=== PATIENT | male | born 1980 | race Caucasian/White ===

== ENCOUNTER 2022-11-13 16:12 | Inpatient (IN) | payer OTHER ==
[~2022-11-13] VITALS: Ht 180.3 cm; Wt 79.1 kg
[2022-11-13 16:37] VITALS: BP 120/74
[2022-11-13 17:50] LABS: BILIRUBIN Negative (Negative); BLOOD Negative (Negative); CLARITY Clear (Clear); COLOR Yellow (Yellow); GLUCOSE Negative (Negative); KETONE Negative (Negative); LEUKO ESTERASE Negative (Negative); NITRITE Negative (Negative); SPECIFIC GRAVITY <= 1.005 (1.001-1.030); UROBILINOGEN 0.2 E.U./dl (0.0-1.0)
[2022-11-13 17:57] LABS: URINE AMPHETAMINES Negative (1000ng/ml); URINE BARBITURATES Negative (200ng/ml); URINE BENZODIAZEPINES Positive (200ng/ml); URINE CANNABINOIDS (THC) Negative (50ng/ml); URINE COCAINE Negative (300ng/ml); URINE METHADONE Negative (300ng/ml); URINE OPIATES Negative (300ng/ml); URINE PHENCYCLIDINE Negative (25ng/ml)
[2022-11-13 18:04] LABS: BACTERIA TRACE; EPITHELIAL CELLS 0-2; RBC 0-2 rbc/hpf (0-2); WBC 0-2 wbc/hpf (0-5)
[2022-11-13 18:31] LABS: BASO % 0.4 % (0.0-1.0); HEMATOCRIT 38.3 % (42.0-52.0); LYMPH # 0.6 10*3/uL (1.3-4.4); LYMPH % 9.2 % (27.0-41.0); MEAN CELL VOLUME 89.9 fl (80.0-94.0); MEAN CORPUSCULAR HGB 30.8 pg (27.0-31.0); MEAN CORPUSCULAR HGB CONC 34.2 g/dl (33.0-37.0); MEAN PLATELET VOLUME 8.5 fl (9.6-12.3); MONO # 0.3 10*3/uL (0.1-1.0); MONO % 4.1 % (3.0-9.0); NEUT # 5.9 10*3/uL (2.3-7.9); NEUT % 86.2 % (47.0-73.0); PLATELET COUNT AUTOMATED 283 10*3/uL (130-400); RED BLOOD COUNT 4.26 10*6/uL (4.50-5.90); RED CELL DISTRI WIDTH 11.9 % (0-14.5); WHITE BLOOD COUNT 6.9 10*3/uL (4.8-10.8)
[2022-11-13 18:55] LABS: ALKALINE PHOSPHATASE 88 U/L (46-116); BUN 5 mg/dl (9-23); CHLORIDE 103 mmol/L (98-107); POTASSIUM 4.1 mmol/L (3.4-5.1); SGPT/ALT 14 U/L (10-49); TOTAL PROTEIN 7.4 gm/dL (6.0-8.0)
[2022-11-13 18:58] LABS: ETHYL ALCOHOL < 3.0 mg/dl (<3)
[2022-11-13 19:26] VITALS: BP 135/65
[2022-11-13 23:30] VITALS: BP 108/67
[2022-11-14] MEDS ORDERED: INSULIN LI100 UNIT/2 SQ (00:55)
[2022-11-14] MEDS ORDERED: LANTUS SOL100 UNIT/1 SQ (00:55)
[2022-11-14 04:00] VITALS: BP 110/72
[2022-11-14 06:35] LABS: BASO % 0.2 % (0.0-1.0); EOS # 0.1 10*3/uL (0.0-0.4); HEMATOCRIT 35.9 % (42.0-52.0); LYMPH # 0.9 10*3/uL (1.3-4.4); LYMPH % 14.2 % (27.0-41.0); MEAN CELL VOLUME 90.2 fl (80.0-94.0); MEAN CORPUSCULAR HGB 30.7 pg (27.0-31.0); MEAN PLATELET VOLUME 9.1 fl (9.6-12.3); MONO # 0.4 10*3/uL (0.1-1.0); MONO % 6.5 % (3.0-9.0); NEUT # 4.6 10*3/uL (2.3-7.9); NEUT % 77.6 % (47.0-73.0); PLATELET COUNT AUTOMATED 277 10*3/uL (130-400); RED BLOOD COUNT 3.98 10*6/uL (4.50-5.90); RED CELL DISTRI WIDTH 11.8 % (0-14.5)
[2022-11-14 08:00] VITALS: BP 102/68
[2022-11-14 08:19] LABS: BUN 9 mg/dl (9-23); CHLORIDE 102 mmol/L (98-107); CHOLESTEROL 138 mg/dL (<200); FREE T4 0.81 ng/dl (0.89-1.76); LDL CHOLESTEROL 74 mg/dL (9-159); POTASSIUM 4.7 mmol/L (3.4-5.1); THYROID STIM HORMONE (HS) 0.372 uIU/ml (0.550-4.780); TRIGLYCERIDES 110 mg/dl (<150)
[2022-11-14 12:00] VITALS: BP 122/75
[2022-11-14 16:00] VITALS: BP 122/76
[2022-11-14 20:00] VITALS: BP 118/78
[2022-11-15] VITALS: BP 122/76; BP 178/59
[2022-11-15 08:00] VITALS: BP 134/83
[2022-11-15 12:00] VITALS: BP 124/81
[2022-11-15 16:00] VITALS: BP 138/80
[2022-11-15 20:00] VITALS: BP 135/78
[2022-11-16] VITALS: BP 125/81
[2022-11-16 08:00] VITALS: BP 130/85
[2022-11-16 12:00] VITALS: BP 119/76
[2022-11-16 14:14] LABS: BASO % 0.6 % (0.0-1.0); EOS # 0.1 10*3/uL (0.0-0.4); EOS % 1.3 % (1.0-4.0); HEMATOCRIT 37.8 % (42.0-52.0); LYMPH % 14.5 % (27.0-41.0); MEAN CELL VOLUME 87.9 fl (80.0-94.0); MEAN CORPUSCULAR HGB 30.2 pg (27.0-31.0); MEAN CORPUSCULAR HGB CONC 34.4 g/dl (33.0-37.0); MEAN PLATELET VOLUME 8.4 fl (9.6-12.3); MONO # 0.4 10*3/uL (0.1-1.0); MONO % 5.7 % (3.0-9.0); NEUT # 5.4 10*3/uL (2.3-7.9); NEUT % 77.2 % (47.0-73.0); PLATELET COUNT AUTOMATED 296 10*3/uL (130-400); RED CELL DISTRI WIDTH 11.7 % (0-14.5)
[2022-11-16 14:35] LABS: BUN 14 mg/dl (9-23); CHLORIDE 101 mmol/L (98-107); POTASSIUM 4.2 mmol/L (3.4-5.1)
[2022-11-16 16:00] VITALS: BP 124/72
[2022-11-16 20:00] VITALS: BP 126/76
[2022-11-17] VITALS: BP 110/69; BP 126/76
[2022-11-17 08:00] VITALS: BP 113/76
[2022-11-17 12:00] VITALS: BP 115/74
[2022-11-17] MEDS ORDERED: VIBRA-TAB100 MG PO (12:50)
[2022-11-17] MEDS ORDERED: METRONIDAZOLE500 M1 PO (12:50)
== END 2022-11-17 17:00 | disposition home or self-care (01) | DRG 773 ==
LOC: ED 16:12 → EDHOLD 19:01 → 5E 19:01
PROVIDERS: Emergency Medicine; Internal Medicine; Student in an Organized Health Care Education/Training Program; ADMIT Internal Medicine; ATTEND Internal Medicine
DX: F11.13 Opioid abuse with withdrawal (principal); E10.43 Type 1 diabetes mellitus with diabetic autonomic (poly)neuropathy; F41.9 Anxiety disorder, unspecified; E87.1 Hypo-osmolality and hyponatremia; F17.210 Nicotine dependence, cigarettes, uncomplicated; D64.9 Anemia, unspecified; E10.65 Type 1 diabetes mellitus with hyperglycemia; F10.10 Alcohol abuse, uncomplicated; F13.10 Sedative, hypnotic or anxiolytic abuse, uncomplicated; F11.11 Opioid abuse, in remission; K31.84 Gastroparesis; Z93.4 Other artificial openings of gastrointestinal tract status; Z71.6 Tobacco abuse counseling; Z83.3 Family history of diabetes mellitus; Z82.49 Family history of ischemic heart disease and other diseases of the circulatory system; Z88.8 Allergy status to other drugs, medicaments and biological substances; Z79.4 Long term (current) use of insulin